=== PATIENT | male | born 1975 | race Two or more races ===

== ENCOUNTER 2017-01-10 13:19 | Emergency (ER) | payer BC ==
[~2017-01-10] VITALS: Ht 175.3 cm; Wt 63.5 kg
[2017-01-10] MEDS ORDERED: AZIT250T6 PO (13:26)
--- NOTE | 2017-01-10 14:15 | NUR ---
DR MORALES AT THE BEDSIDE FOR EVAL AND EXAM.
[2017-01-10] MEDS ORDERED: IV NORMAL SALINE 1000 ML BAG IV ONE (14:30)
[2017-01-10 14:52] LABS: CREATININE 0.7 mg/dL (0.6-1.3); POTASSIUM 4.3 mmol/L (3.5-5.1)
[2017-01-10 14:55] LABS: BASOPHILS % (AUTO) 0.3 % (0.0-2.0); EOSINOPHILS # (AUTO) 0.1 K/uL (0.0-0.7); EOSINOPHILS % (AUTO) 0.9 % (0.0-7.0); HEMATOCRIT 35.5 % (40-50); HEMOGLOBIN 11.6 G/DL (14.0-18.0); LYMPHOCYTES # (AUTO) 1.1 K/UL (0.8-4.8); LYMPHOCYTES % (AUTO) 11.4 % (20.5-51.5); MEAN CORPUSCULAR HEMOGLOBIN 27.6 UUG (27.0-31.0); MEAN CORPUSCULAR HGB CONC 33 g/dL (32.0-37.0); MEAN CORPUSCULAR VOLUME 84.5 FL (82.0-92.0); MONOCYTES # (AUTO) 0.7 K/UL (0.1-1.30); MONOCYTES % (AUTO) 6.8 % (0.0-11.0); NEUTROPHILS % (AUTO) 80.6 % (38.5-71.5); PLATELET COUNT (AUTO) 237 K/UL (150-450); WHITE BLOOD COUNT (AUTO) 9.9 K/UL (4.0-11.2)
--- NOTE | 2017-01-10 15:41 | NUR ---
Patient discharged to home in stable conditon. Written and verbal after care instructions given. Patient verbalizes understanding of instructions. PT LEFT ER W/ STEADY GAIT ACCOMPAINED BY FAMILY.
[2017-01-10 15:43] VITALS: BP 112/67
== END 2017-01-10 15:46 | disposition home or self-care (01) ==
LOC: ER 13:22
DX: R55 Syncope and collapse (principal); Z88.0 Allergy status to penicillin; Z88.1 Allergy status to other antibiotic agents; Z98.890 Other specified postprocedural states
CPT/HCPCS: 36415; 71010; 80048; 84484; 85025; 93005; 96360; 99285; A4217; A4663; J7030; 70030-TC